=== PATIENT | female | born 1995 | race Two or more races ===

== ENCOUNTER 2024-09-24 12:25 | Outpatient (CLI) | payer OTHER | END 2024-09-24 12:33 | disposition home or self-care (01) | LOC: RAD 12:25 | DX: M54.2 Cervicalgia (principal); M54.6 Pain in thoracic spine ==

== ENCOUNTER 2025-06-06 07:56 | Outpatient (CLI) | payer OTHER ==
[2025-06-06 07:20] VITALS: BP 107/66
[2025-06-06] MEDS ORDERED: RINGERS SOLUTION,LACTATED 1,000 ML IV SCH (08:15)
[2025-06-06 08:25] LABS: BASO % 0.2 % (0.1-1.2); EOS # 0.09 (0.04-0.54); EOS % 0.7 % (0.7-7.0); LYMPH # 1.77 (1.18-3.74); LYMPH % 13.2 % (19.3-53.1); MEAN PLATELET VOLUME 12.20 fl (9.4-12.4); MONO # 1.12 (0.24-0.82); MONO % 8.4 % (4.7-12.5); NEUT # 10.27 (1.56-6.13); NEUT % 76.8 % (34.0-71.1); RED CELL DISTRIBUTION WIDTH 12.7 % (11.6-14.4)
[2025-06-06] MEDS ORDERED: FUSION PLUS CA1 EACH PO (10:05)
[2025-06-06 10:55] LABS: URINE APPEARANCE Clear; URINE BILIRRUBIN Negative (NEGATIVE); URINE BLOOD Moderate; URINE COLOR Yellow; URINE GLUCOSE Negative (NEGATIVE); URINE LEUKOCYTE Trace; URINE NITRATE Negative; URINE PROTEIN Negative (NEGATIVE); URINE UROBILINOGEN 0.2 E.U./dl
[2025-06-06 11:00] LABS: URINE BACTERIA 85.1 uL (0.0-1933); URINE EPITHELIAL CELLS 20.4 uL (0.0-38.8); URINE RBC 80.5 uL (0.0-20.8); URINE WBC 5.0 uL (0.0-23.2)
[2025-06-06 11:03] LABS: URINE CAST 0.14 uL (0.0-1.40); URINE KETONE 40 (NEGATIVE)
[2025-06-06 11:20] VITALS: BP 107/66
== END 2025-06-06 11:20 | disposition home or self-care (01) ==
LOC: OBS/DEL 07:56
PROVIDERS: Obstetrics & Gynecology; ATTEND Specialist
DX: O26.853 Spotting complicating pregnancy, third trimester (principal); Z3A.38 38 weeks gestation of pregnancy